=== PATIENT | female | born 1990 | race Caucasian/White ===

== ENCOUNTER 2021-07-31 03:01 | Emergency (ER) | payer OTHER, SELFPAY ==
[2021-07-31] VITALS (7 sets, daily range): BP systolic 95–128; BP diastolic 54–80; PULSE 66–80; RESP 16–20; TEMP 36.2; O2SAT 96–100
[2021-07-31 03:33] LABS: Basophils Absolute Auto 0.1 K/mm3 (0.0-0.1); Basophils Percent Auto 0.5 % (0.2-1.2); Eosinophils Absolute Auto 0.3 K/mm3 (0-0.3); Eosinophils Percent Auto 2.2 % (0-4.4); Hematocrit 37.3 % (37.0-47.0); Hemoglobin 12.7 g/dL (12.0-15.0); Immature Granulocyte Absolute 0.08 K/mm3 (0.00-0.031); Immature Granulocyte Percent A 0.6 % (0-0.5); Lymphocytes Absolute Auto 2.54 K/mm3 (0.9-3.2); Lymphocytes Percent Auto 18.2 % (18.3-44.2); Mean Corpuscular Hemoglobin 27.4 pg (26-34); Mean Corpuscular Volume 80.4 fl (80-100); Mean Platelet Volume 10.3 fl (7.4-10.4); Monocytes Absolute Auto 0.8 K/mm3 (0.1-0.6); Monocytes Percent Auto 5.4 % (2.6-8.5); Neutrophils Absolute Auto 10.2 K/mm3 (1.3-6.7); Neutrophils Percent Auto 73.1 % (45.5-73.1); Platelet Count Result 275 k/mm3 (150-375); Red Blood Count 4.64 M/mm3 (4.2-5.4); Red Cell Distribution Width 12.6 % (11.5-14.5); White Blood Count 13.9 K/mm3 (4.5-10.0)
--- NOTE | 2021-07-31 04:39 | ED.PREGNANCY ---
HPI - General Chief complaint: Vaginal Bleeding Stated complaint: Miscarriage Time Seen by Provider: 07/31/21 03:14 Source: patient Mode of arrival: ambulatory Limitations: no limitations History of Present Illness HPI Narrative: This is a 30 year old female who presents for evaluation of vaginal bleeding with a miscarriage. Patient had IVF performed for her . She had an US on June 15 that showed failed with empty ovum. She has been waiting for contents to pass since June 15. She reports yesterday she thinks she passed ovum but tonight she developed heavy vaginal bleeding . She reports she is passing clots and she is changing 1 pad per hour. She also reports severe lower abdominal cramping. She denies being lightheaded or dizzy. She took ibuprofen 400 mg for her pain and she reports some relief. Related Data Home Medications Medication Instructions Recorded Confirmed No Home Medications 07/31/21 07/31/21 Allergies Allergy/AdvReac Type Severity Reaction Status Date / Time Tetracyclines Allergy Itching Verified 07/31/21 03:21 Review of Systems Review of Systems: All systems reviewed & are unremarkable except as noted in HPI and below PMFSH Past Medical History Medical History (Updated 07/31/21 @ 06:31 by Katty Crowder MD) History of in vitro fertilization Patient denies medical problems Social History Social History (Updated 07/31/21 @ 06:27 by Katty Crowder MD) Smoking status: Never smoker Exam Const: General: no acute distress and alert Eyes: EOM: EOMs intact bilaterally Resp: Effort & Inspection: normal respiratory effort and no retractions Auscultation: clear to auscultation bilaterally Cardio: Rate: regular rate Rhythm: regular rhythm Heart sounds: no murmurs GI: GI Palp: Yes Soft to palpation, No Tenderness to palpation present (GI) and No Guarding due to palpation present (GI) Auscultation: normal bowel sounds : Speculum Exam - Vagina: vaginal bleeding Other: mild dark blood bleeding, clot in cervix, Skin: General skin exam: normal color Rashes: no rashes Neuro: General: patient oriented x3 and moves all extremities Extrem: General: normal to inspection Psych: Mental Status: mental status grossly normal Affect: normal affect Course Reevaluation(s) Reevaluation #1: I spoke with Dr. Juarez who is artificial stone applicator for Dr. Sapp. She states if patient is stable and patient feels comfortable she will try to arrange in sooner D and C outpatient evaluation. I discussed with patient. She would prefer to be taken care of by her OBGYN instead of artificial stone applicator. She feels comfortable with discharge and bleeding is not heavy. She denies dizziness or weakness. Date: 07/31/21 Time: 06:28 Consultations Consultation #1: Dr. Juarez will arrange for D and C today or tomorrow. They will call patient is a couple hours. Date: 07/31/21 Time: 06:40 Vital Signs Vital signs: Vital Signs Temperature 97.2 F L 07/31/21 03:04 Pulse Rate 80 07/31/21 03:04 Respiratory Rate 18 07/31/21 03:04 Blood Pressure 118/80 07/31/21 03:04 Pulse Oximetry 100 07/31/21 03:04 Temperature 97.2 F L 07/31/21 03:04 Pulse Rate 74 07/31/21 06:53 Respiratory Rate 20 07/31/21 06:53 Blood Pressure 95/54 L 07/31/21 06:53 Pulse Oximetry 99 07/31/21 06:53 MDM - OB/Uterine Contractions Lab Data Attestation: I reviewed the patient's lab results. Result diagrams: 07/31/21 03:28 Labs: Lab Results 07/31/21 07/31/21 07/31/21 Range/Units 03:28 03:28 03:28 WBC 13.9 H (4.5-10.0) K/mm3 RBC 4.64 (4.2-5.4) M/mm3 Hgb 12.7 (12.0-15.0) g/dL Hct 37.3 (37.0-47.0) % MCV 80.4 (80-100) fl MCH 27.4 (26-34) pg MCHC 34.0 (32-36) g/dl RDW 12.6 (11.5-14.5) % Plt Count 275 (150-375) k/mm3 MPV 10.3 (7.4-10.4) fl Immature Gran % (Auto) 0.6 H (0-0.5) % Neut % (Auto) 73.1 (45.5-73.1
[2021-07-31] MEDS: KETOROLAC 30 MG/ML VIAL (*BKC) IV PUSH (04:42)
[2021-07-31] MEDS: SODIUM CHLORIDE 0.9% IV 1,000 ML 999 ML IV CONT (04:42)
== END 2021-07-31 06:54 | disposition home or self-care (01) ==
PROVIDERS: Emergency Provider General Practice
DX: O03.4 Incomplete spontaneous abortion without complication (principal)
CPT/HCPCS: 36415; 84702; 85025; 85461; 96361; 96374; 99284; J1885; J7030

== ENCOUNTER 2023-10-05 18:24 | Emergency (ER) | payer BC, SELFPAY ==
[2023-10-05] VITALS (18 sets, daily range): BP systolic 106–125; BP diastolic 64–85; PULSE 65–80; RESP 12–22; TEMP 35.8–36.9; O2SAT 94–100
--- NOTE | 2023-10-05 18:37 | ECG_ITS ---
Test Date: 2023-10-05 18:43:11 Measurements Intervals [place] Rate: 75 P: 36 NM: 172 QRS: -6 QRSD: 121 T: 8 QT: 395 QTc: 444 Interpretive Statements SINUS RHYTHM INTRAVENTRICULAR CONDUCTION DELAY BASELINE ARTIFACT- I, III, AVL BORDERLINE ECG No previous ECG available for comparison Electronically Signed On 10-05-2023 20:23:38 CDT by Jovan Martínez D.O.
[2023-10-05 19:02] LABS: Basophils Absolute Auto 0.1 K/mm3 (0.0-0.1); Basophils Percent Auto 0.7 % (0.2-1.2); Eosinophils Absolute Auto 0.4 K/mm3 (0-0.3); Eosinophils Percent Auto 2.9 % (0-4.4); Hematocrit 41.3 % (37.0-47.0); Hemoglobin 13.7 g/dL (12.0-15.0); Immature Granulocyte Absolute 0.13 K/mm3 (0.00-0.031); Lymphocytes Absolute Auto 4.48 K/mm3 (0.9-3.2); Lymphocytes Percent Auto 34.7 % (18.3-44.2); Mean Corpuscular HGB Conc 33.2 g/dl (32-36); Mean Corpuscular Hemoglobin 25.5 pg (26-34); Mean Corpuscular Volume 76.9 fl (80-100); Monocytes Absolute Auto 1.1 K/mm3 (0.1-0.6); Monocytes Percent Auto 8.5 % (2.6-8.5); Neutrophils Absolute Auto 6.7 K/mm3 (1.3-6.7); Neutrophils Percent Auto 52.2 % (45.5-73.1); Platelet Count Result 284 k/mm3 (150-375); Red Blood Count 5.37 M/mm3 (4.2-5.4); Red Cell Distribution Width 13.3 % (11.5-14.5); White Blood Count 12.9 K/mm3 (4.5-10.0)
[2023-10-05 19:13] LABS: Alanine Aminotransferase 35 U/L (6-35); Albumin Level 4.9 g/dL (3.5-5.1); Alkaline Phosphatase 95 U/L (38-126); Anion Gap 14 mmol/L (4-12); Aspartate Amino Transferase 33 U/L (14-36); Bilirubin,Total 0.3 mg/dL (0.2-1.3); Blood Urea Nitrogen 20 mg/dL (7-17); Calcium 8.9 mg/dL (8.4-10.2); Carbon Dioxide 23 mmol/L (22-30); Chloride 100 mmol/L (98-107); Estimated CRCL calculation 135 ml/min; Estimated Glomerular Filt Rate > 60; Glucose 131 mg/dL (65-110); Lipase 76 U/L (23-300); Potassium 3.6 mmol/L (3.4-5.0); Sodium 137 mmol/L (137-145)
--- NOTE | 2023-10-05 19:16 | PC.NURSE ---
Bedside report given to Philly OCONNOR, all questions answered.
--- NOTE | 2023-10-05 19:19 | PC.NURSE ---
Report received from ANASTASIA Bowens. Assumed care of patient at this time.
--- NOTE | 2023-10-05 19:42 | ED.GENADULT ---
HPI - General Adult General Chief complaint: Dizziness Stated complaint: dizziness Time Seen by Provider: 10/05/23 18:46 History of Present Illness HPI narrative: This is a 33-year-old female presenting with vertigo. Symptoms started at noon today. They became acutely worse around 5:00 p.m.. She describes it as the room spinning when she moves her head. Symptoms completely resolved between episodes. No double vision dysarthria dysphagia or loss of coordination. She has had difficulty walking. No loss of hearing. Patient is 11 months and is breast-feeding. Related Data Allergies Allergy/AdvReac Type Severity Reaction Status Date / Time Tetracyclines Allergy Itching Verified 10/05/23 18:32 [facility] Past Medical History Medical History History of in vitro fertilization Patient denies medical problems Social History Social History Smoking status: Never smoker Exam Narrative: APPEARANCE: No apparent distress. Head: atraumatic. Serum impaction bilat EYES: EOMI, NOSE: Atraumatic NECK: Trachea midline RESPIRATORY: No increased rate of breathing CARDIOVASCULAR: RRR, ABDOMINAL: Non-distended MUSCULOSKELETAl: No obvious deformities NEURO: Alert. Cranial nerves 2-12 grossly intact. Sensation light touch, motor function cerebellar function intact for 4 extremities. Gait exam was deferred. No nystagmus at rest. Head impulse indeterminate, test of skew negative SKIN:: Warm, dry. Normal color PSYCHIATRIC: Normal affect Course Vital Signs Vital signs: Vital Signs Temperature 96.5 F L 10/05/23 18:28 Pulse Rate 72 10/05/23 18:28 Respiratory Rate 18 10/05/23 18:28 Blood Pressure 125/79 10/05/23 18:28 Pulse Oximetry 100 10/05/23 18:28 Oxygen Delivery Room Air 10/05/23 18:28 Temperature 96.5 F L 10/05/23 18:28 Pulse Rate 75 10/05/23 23:00 Respiratory Rate 16 10/05/23 23:00 Blood Pressure 108/69 10/05/23 22:53 Pulse Oximetry 95 10/05/23 22:53 Oxygen Delivery Room Air 10/05/23 18:28 Medical Decision Making [facility] Narrative Medical decision making narrative: -Course: 33-year-old female presenting with episodic vertigo. cerumen impaction of both ears which was clear by nursing staff. Patient given meclizine and scopolamine with some improvement. Attempted cerumen impaction removal but was unsuccessful. Tadeo maneuvers performed. The patient's condition improved. Still having some dizziness but able to ambulate. Discussed performing the Tadeo maneuver at home following with ENT in the patient. She is agreeable to this plan. Discharged with return precautions. -DDX includes but is not limited to: Peripheral vertigo, central vertigo, cerumen -Co-morbidities complicating care: The and -Independent interpretation of studies: Labs ordered by nurses in triage. Unremarkable. -Interventions: Scopolamine, meclizine, Reglan -Shared decision making / Disposition: Discharge -RX Reglan Vital Signs Vital Signs: Vital Signs Temperature 96.5 F L 10/05/23 18:28 Pulse Rate 72 10/05/23 18:28 Respiratory Rate 18 10/05/23 18:28 Blood Pressure 125/79 10/05/23 18:28 Pulse Oximetry 100 10/05/23 18:28 Oxygen Delivery Room Air 10/05/23 18:28 Temperature 96.5 F L 10/05/23 18:28 Pulse Rate 75 10/05/23 23:00 Respiratory Rate 16 10/05/23 23:00 Blood Pressure 108/69 10/05/23 22:53 Pulse Oximetry 95 10/05/23 22:53 Oxygen Delivery Room Air 10/05/23 18:28 Lab Data 10/05/23 18:49 10/05/23 18:49 Labs: Lab Results 10/05/23 Range/Units 18:49 WBC 12.9 H (4.5-10.0) K/mm3 RBC 5.37 (4.2-5.4) M/mm3 Hgb 13.7 (12.0-15.0) g/dL Hct 41.3 (37.0-47.0) % MCV 76.9 L (80-100) fl MCH 25.5 L (26-34) pg MCHC 33.2 (32-36) g/dl RDW 13.3 (11.5-14.5) % Plt C
[2023-10-05] MEDS: MECLIZINE HCL 25 MG TABLET PO (19:44)
[2023-10-05] MEDS: SCOPOLAMINE 1 MG PATCH 1 PATCH TRANSDERM (19:46)
--- NOTE | 2023-10-05 21:18 | PC.NURSE ---
Patient given pump parts upon request.
--- NOTE | 2023-10-05 21:36 | PC.NURSE ---
This RN attempted to irrigate both ears, unsuccessful. Patient did tolerate well. Patient states she still feels dizzy. ERP notified and orders placed.
[2023-10-05] MEDS: METOCLOPRAMIDE HCL INJ 10 MG/2 ML VIAL IV PUSH (21:40)
--- NOTE | 2023-10-05 22:40 | PC.NURSE ---
Patient calls out using call light and states she is ready to do the maneuvers, ERP notified.
--- NOTE | 2023-10-05 22:59 | PC.NURSE ---
Patient removed her own scopolamine patch. This nurse and ERP in room with patient and found patch onbed. Patient stated she did remove it on her own at 2200.
--- NOTE | 2023-10-05 23:08 | PC.NURSE ---
ERP performed Tadeo maneuver to assist with vertigo. Patient tolerated well and is feeling better. Patient able to ambulate with steady gait without assistance. Patient states she is ready to go home.
== END 2023-10-06 | disposition home or self-care (01) ==
PROVIDERS: Emergency Medicine; Emergency Provider Emergency Medicine
DX: H81.10 Benign paroxysmal vertigo, unspecified ear (principal)
CPT/HCPCS: 36415; 80053; 83690; 85025; 93005; 96374; 99284; A9270; J2765